=== PATIENT | female | born 1950 | race African-American/Black ===

== ENCOUNTER 2022-06-26 06:18 | Emergency (ER) | payer OTHER ==
[~2022-06-26] VITALS: Ht 172.7 cm; Wt 75.0 kg
[2022-06-26] MEDS ORDERED: ONDANSETRON HCL 4MG/2ML INJ IV STA (06:32)
[2022-06-26] MEDS ORDERED: MORPHINE SULFATE 4 MG/ML CPJ (NOT FOR IM USE) IV STA (06:32)
[2022-06-26 07:20] LABS: BASOPHILS % 0.4 % (0.0-2.0); EOSINOPHILS % 1.7 % (0.0-5.0); HEMATOCRIT. 33.3 % (36.0-48.0); HEMOGLOBIN. 11.7 g/dL (12.0-16.0); MEAN CORPUSCULAR HEMOGLOBIN 30.5 pg (28.0-32.0); MEAN CORPUSCULAR VOLUME 87.2 fL (81.0-99.0); MEAN PLATELET VOLUME 9.7 fl (7.4-10.4); NEUTROPHILS % 70.9 % (40.0-76.0); PLATELET 147 x1000/uL (130-400); RED BLOOD CELL COUNT 3.82 mill/uL (4.2-5.4); RED CELL DISTRIBUTION WIDTH 13.8 % (11.6-14.6)
[2022-06-26 07:34] LABS: CHLORIDE 107 mEq/L (98-107)
[2022-06-26] MEDS ORDERED: MORPHINE SULFATE 4 MG/ML CPJ (NOT FOR IM USE) IV ONE ×2 (08:00→10:45)
[2022-06-26] MEDS ORDERED: ONDANSETRON HCL 4MG/2ML INJ ONE (08:41)
[2022-06-26] MEDS ORDERED: ONDANSETRON HCL 4MG/2ML INJ IV ONE ×2 (08:45→10:45)
[2022-06-26] MEDS ORDERED: ESMOLOL 2500MG PREMIX 250 ML IV ONE ×2 (08:45→09:00)
[2022-06-26] MEDS ORDERED: IOHEXOL-350 100 ML BOTTLE ONE (10:00)
[2022-06-26] MEDS ORDERED: NITROPRUSSIDE 50 MG in SODIUM CHLORIDE 0.9% 248 ML IV STA (10:21)
[2022-06-26] MEDS ORDERED: NITROPRUSSIDE 50 MG in SODIUM CHLORIDE 0.9% 248 ML IV PRN (10:45)
[2022-06-26 10:55] VITALS: BP 169/84
== END 2022-06-26 11:11 | disposition short-term general hospital (02) ==
LOC: ER 06:18
DX: I77.70 Dissection of unspecified artery (principal); Z88.0 Allergy status to penicillin; Z20.822 Contact with and (suspected) exposure to COVID-19
CPT/HCPCS: 36415; 71045; 71275; 74174; 80053; 83880; 84484; 85025; 85379; 87426; 93005; 96374; 96375; 96376; 99285; C9803; J2270; J2405; J3490; J7050; Q9967

== ENCOUNTER 2022-07-09 03:01 | Emergency (ER) | payer OTHER ==
[~2022-07-09] VITALS: Ht 160 cm; Wt 64.0 kg
[2022-07-09] MEDS ORDERED: DIPHENHYDRAMINE 50MG/ML VIAL IV ONE (04:30)
[2022-07-09] MEDS ORDERED: DEXAMETHASONE 10 MG/ML VIAL IV ONE (04:30)
[2022-07-09] MEDS ORDERED: FAMOTIDINE 20MG/2ML VIAL IV ONE (04:30)
[2022-07-09 05:16] LABS: BASOPHILS % 0.3 % (0.0-2.0); EOSINOPHILS % 0.3 % (0.0-5.0); HEMOGLOBIN. 8.4 g/dL (12.0-16.0); MEAN CORPUSCULAR HEMOGLOBIN 29.6 pg (28.0-32.0); MEAN CORPUSCULAR VOLUME 84.7 fL (81.0-99.0); MEAN PLATELET VOLUME 8.1 fl (7.4-10.4); MONOCYTES % 10.2 % (2.0-8.0); NEUTROPHILS % 80.2 % (40.0-76.0); PLATELET 631 x1000/uL (130-400); RED BLOOD CELL COUNT 2.83 mill/uL (4.2-5.4); RED CELL DISTRIBUTION WIDTH 13.9 % (11.6-14.6)
[2022-07-09 05:29] LABS: CHLORIDE 99 mEq/L (98-107)
[2022-07-09] MEDS ORDERED: POTASSIUM CHLORIDE 20MEQ TABLET SR PO ONE (07:00)
[2022-07-09 08:00] VITALS: BP 126/64
== END 2022-07-09 08:07 | disposition home or self-care (01) ==
LOC: ER 03:15
DX: R60.9 Edema, unspecified (principal); I49.9 Cardiac arrhythmia, unspecified; Z88.0 Allergy status to penicillin
CPT/HCPCS: 36415; 80053; 84484; 85025; 93005; 96374; 96375; 99284; J1100; J1200; J3490